=== PATIENT | female | born 1940 | race Caucasian/White ===

== ENCOUNTER 2018-09-15 08:51 | Day surgery (SDC) | payer MEDICARE ==
[~2018-09-15] VITALS: Ht 165.1 cm; Wt 79.3 kg
[2018-09-15] VITALS (13 sets, daily range): BP systolic 117–192; BP diastolic 48–89
[2018-09-15] MEDS ORDERED: LISI-600 PO (09:25)
[2018-09-15] MEDS ORDERED: GLIP2.5T3 PO (09:25)
[2018-09-15] MEDS ORDERED: MULT-1141 PO (09:25)
[2018-09-15] MEDS ORDERED: ASPI-1265 PO (09:25)
[2018-09-15] MEDS ORDERED: HYDR25TA4 PO (09:25)
[2018-09-15] MEDS ORDERED: dextrose ORAL solution 15 GM/59 ML bottle PO PRN ×2 (09:30)
[2018-09-15] MEDS ORDERED: MESSAGE TO PHARMACY PO ONE (09:30)
[2018-09-15] MEDS ORDERED: dextrose 50%-water 50ml dispensing syringe IV PRN ×2 (09:30)
[2018-09-15] MEDS ORDERED: insulin Lispro (HumaLOG) vial - multi-dose SQ SCH (09:30)
[2018-09-15] MEDS ORDERED: diphenhydrAMINE 25mg capsule PO PRN (09:30)
[2018-09-15] MEDS ORDERED: nitroGLYCERIN 0.4mg SUBLingual tab SL PRN (09:30)
[2018-09-15] MEDS ORDERED: normal saline 1000ml 1,000 ML IV SCH (09:30)
[2018-09-15] MEDS ORDERED: LORazepam 0.5 MG tablet PO PRN (09:30)
[2018-09-15] MEDS ORDERED: glucagon, human recombinant 1mg kit SUBCUT PRN (09:30)
[2018-09-15 10:03] LABS: BASOPHILS % (AUTO) 0.5 % (0-1); EOSINOPHILS # (AUTO) 0.1 X10'3 (0-0.9); EOSINOPHILS % (AUTO) 2.6 % (0-6); HEMATOCRIT 37.9 % (35.0-45.0); HEMOGLOBIN 12.4 g/dl (12.0-16.0); LYMPHOCYTES # (AUTO) 1.1 X10'3 (1.1-4.8); LYMPHOCYTES % (AUTO) 19.5 % (21-51); MEAN CORPUSCULAR HEMOGLOBIN 29.6 PG (27.0-31.0); MEAN CORPUSCULAR HGB CONC 32.8 % (33.0-36.5); MEAN CORPUSCULAR VOLUME 90.2 FL (78-98); MEAN PLATELET VOLUME 8.2 FL (7.4-10.4); MONOCYTES # (AUTO) 0.4 X10'3 (0-0.9); MONOCYTES % (AUTO) 7.1 % (2-12); NEUTROPHILS % (AUTO) 70.3 % (42-75); PLATELET COUNT 306 X10'3 (140-440); RED CELL DISTRIBUTION WIDTH 12.4 % (11.5-14.5); WHITE BLOOD COUNT 5.6 X10'3 (4.5-11.0)
[2018-09-15 10:18] LABS: ALBUMIN 3.8 G/DL (3.4-5.0); ANION GAP 9 (8-16); BLOOD UREA NITROGEN 28 MG/DL (7-18); BUN/CREATININE RATIO 16.7 (6.6-38.0); CALCIUM 10.1 MG/DL (8.5-10.1); CHLORIDE 106 MMOL/L (99-107); CREATININE 1.68 MG/DL (0.40-0.90); GLUCOSE 117 MG/DL (70-104); PARTIAL THROMBOPLASTIN TIME 23 SECONDS (22-32); POTASSIUM 5.8 MMOL/L (3.5-5.1); PROTHROMBIN TIME 10.1 SECONDS (9.0-12.0); SODIUM 139 MMOL/L (135-145); TOTAL CARBON DIOXIDE 24.4 MMOL/L (24-32); eGFR 29 ML/MIN
[2018-09-15] MEDS ORDERED: LIDOcaine 1% (10mg/ml)w/preservative injection 20ml MDV ONE (11:53)
[2018-09-15] MEDS ORDERED: iohexol 350MG/ML 100ml bottle IV ONE (11:54)
[2018-09-15] MEDS ORDERED: heparin 1,000 UNITS/NS 500ml 500 ML ONE (11:54)
[2018-09-15] MEDS ORDERED: iohexol 350 MG/ML 50ML vial IV ONE (11:54)
[2018-09-15] MEDS ORDERED: midazolam 2 mg/2 ml injection ONE (12:39)
[2018-09-15] MEDS ORDERED: nitroGLYCERIN-Tridil 50MG/D5W 250 ML IV ONE (12:50)
[2018-09-15] MEDS ORDERED: HYDROcodone/acetaminophen 10/325mg tab PO PRN (13:40)
[2018-09-15] MEDS ORDERED: proCHLORperazine 10 MG/2 ml inj IV PRN (13:40)
[2018-09-15] MEDS ORDERED: OXAZEpam 15mg capsule PO PRN (13:40)
[2018-09-15] MEDS ORDERED: HYDROcodone/acetaminophen 5mg/325mg tablet PO PRN (13:40)
[2018-09-15] MEDS ORDERED: ondansetron/PF 4mg/2ml inj IV PRN (13:40)
[2018-09-15 15:27] LABS: HEMOGLOBIN A1C 6.2 % (4.5-6.2)
[2018-09-15] MEDS ORDERED: insulin glargine (Lantus) pen - multi-dose SQ SCH (21:00)
== END 2018-09-15 20:00 | disposition home or self-care (01) ==
LOC: SSTAY O 08:51
PROVIDERS: ATTEND Internal Medicine Cardiovascular Disease
DX: I25.708 Atherosclerosis of coronary artery bypass graft(s), unspecified, with other forms of angina pectoris (principal); E11.9 Type 2 diabetes mellitus without complications; I10 Essential (primary) hypertension; E78.5 Hyperlipidemia, unspecified; I65.29 Occlusion and stenosis of unspecified carotid artery; M47.819 Spondylosis without myelopathy or radiculopathy, site unspecified; M19.90 Unspecified osteoarthritis, unspecified site; I49.3 Ventricular premature depolarization; I44.7 Left bundle-branch block, unspecified; R06.02 Shortness of breath; E03.9 Hypothyroidism, unspecified; Z90.710 Acquired absence of both cervix and uterus; Z79.4 Long term (current) use of insulin; Z79.82 Long term (current) use of aspirin; Z95.1 Presence of aortocoronary bypass graft; Z87.891 Personal history of nicotine dependence; Z79.899 Other long term (current) drug therapy; Z98.890 Other specified postprocedural states
CPT/HCPCS: 36415; 71046; 80048; 83036; 85025; 85610; 85730; 93005; 93459; 99152; 99153; A6257; C1760; J1644; J2001; J2250; J7030; Q0163; Q9967; A4620; C1769; J3490